=== PATIENT | female | born 1930 | race Caucasian/White ===

== ENCOUNTER 2018-08-16 11:04 | Outpatient (CLI) | payer OTHER ==
[~2018-08-16] VITALS: Ht 152.4 cm; Wt 61.2 kg
== END 2018-08-16 11:20 | disposition home or self-care (01) ==
LOC: OFIC 805 11:04
DX: H69.83 Other specified disorders of Eustachian tube, bilateral (principal); J31.0 Chronic rhinitis

== ENCOUNTER 2018-09-27 11:30 | Outpatient (CLI) | payer OTHER ==
[~2018-09-27] VITALS: Ht 152.4 cm; Wt 61.2 kg
== END 2018-09-27 11:45 | disposition home or self-care (01) ==
LOC: OFIC 805 11:30
DX: H69.83 Other specified disorders of Eustachian tube, bilateral (principal); J31.0 Chronic rhinitis